=== PATIENT | female | born 2000 | race African-American/Black ===

== ENCOUNTER 2021-08-12 21:59 | Emergency (ER) | payer BC, OTHER ==
[~2021-08-12] VITALS: Ht 160 cm; Wt 103.4 kg
[2021-08-12] MEDS ORDERED: SODIUM CHLORIDE 0.9% 1000ML 1,000 ML IV STA (22:34)
[2021-08-12] MEDS ORDERED: KETOROLAC TROMETHAMINE 30 MG/ML VIAL IV STA (22:34)
[2021-08-12] MEDS ORDERED: ACETAMINOPHEN 325 MG TAB ONE (22:41)
[2021-08-12] MEDS ORDERED: KETOROLAC TROMETHAMINE 30 MG/ML VIAL ONE (22:43)
[2021-08-12] MEDS ORDERED: SODIUM CHLORIDE 0.9% 1000ML 1,000 ML ONE (22:44)
[2021-08-12] MEDS ORDERED: FENTANYL CITRATE/PF 100MCG/2 ML INJ IV PRN (22:45)
[2021-08-12 22:48] LABS: BASOPHILS # (AUTO) 0.1 (0.0-0.1); BASOPHILS % 0.7 % (0.0-1.0); EOSINOPHILS # (AUTO) 0.1 (0.0-0.4); EOSINOPHILS % 0.8 % (0.0-6.0); HEMATOCRIT 37.8 % (34.2-44.1); HEMOGLOBIN 11.7 g/dL (12.0-16.0); LYMPHOCYTES # (AUTO) 3.3 (1.0-3.2); LYMPHOCYTES % 33.7 % (18.0-39.1); MEAN CORPUSCULAR HEMOGLOBIN 26.4 pg (28-32); MEAN CORPUSCULAR VOLUME 85.1 fL (81-99); MONOCYTES # (AUTO) 0.8 (0.2-0.8); MONOCYTES % 8.1 % (4.4-11.3); NEUTROPHILS # (AUTO) 5.5 (2.1-6.9); NEUTROPHILS % 56.6 % (38.7-80.0); PLATELET COUNT 263 x10e3/uL (140-360); RED BLOOD COUNT 4.44 x10e6/uL (3.6-5.1); RED CELL DISTRIBUTION WIDTH 14.7 % (11.7-14.4)
[2021-08-12] MEDS ORDERED: ONDANSETRON HCL INJ 2MG/ML 2ML 2 MG/ML VIAL ONE (22:48)
[2021-08-12 22:50] LABS: CLARITY,URINE CLOUDY (CLEAR); COLOR,URINE YELLOW (YELLOW); KETONES,URINE NEGATIVE (NEGATIVE); LEUKOCYTE ESTERASE ,URINE NEGATIVE (NEGATIVE); NITRITE,URINE NEGATIVE (NEGATIVE); PROTEIN,URINE DIPSTICK NEGATIVE (NEGATIVE); URINE UROBILINOGEN 0.2 mg/dL (0.2 - 1)
[2021-08-12 22:56] LABS: BACTERIA,URINE MANY /HPF; EPITHELIAL CELLS,URINE MANY /LPF
[2021-08-12 22:57] LABS: AMORPHOUS SEDIMENT,URINE MANY (FEW)
[2021-08-12 23:05] LABS: ALBUMIN 3.6 g/dL (3.5-5.0); ANION GAP 14.6 mmol/L (8-16); CALCIUM 8.6 mg/dL (8.4-10.2); CREATININE, SERUM 0.77 mg/dL (0.57-1.11); POTASSIUM 3.6 mmol/L (3.5-5.1)
[2021-08-13] MEDS ORDERED: IOPAMIDOL 370 MG/ML 100 ML INFUS..BTL INJ ONE (00:06)
[2021-08-13] MEDS ORDERED: NAPROXEN250 MG PO (02:00)
[2021-08-13 02:29] VITALS: BP 115/68
== END 2021-08-13 02:25 | disposition home or self-care (01) ==
LOC: ER 22:15
DX: R10.31 Right lower quadrant pain (principal); N83.201 Unspecified ovarian cyst, right side; R50.9 Fever, unspecified; M54.9 Dorsalgia, unspecified; R11.0 Nausea; D64.9 Anemia, unspecified
CPT/HCPCS: 36415; 74177; 80053; 81001; 83690; 84702; 85025; 99284; J1885; J2405; J3010; J7030; Q9967

== ENCOUNTER 2024-10-17 22:48 | Emergency (ER) | payer BC, OTHER ==
[~2024-10-17] VITALS: Ht 160 cm; Wt 125.6 kg
[~2024-10-17 22:48] MED LIST: NAPROXEN250 MG PO
[2024-10-17 22:50] VITALS: PULSE 122; RESP 19; TEMP 97.6
[2024-10-17 23:20] LABS: BASOPHILS % 0.7 % (0.0-1.0); EOSINOPHILS % 1.1 % (0.0-6.0); LYMPHOCYTES % 51.1 % (18.0-39.1); MONOCYTES % 7.8 % (4.4-11.3); NEUTROPHILS % 39.0 % (38.7-80.0); RED CELL DISTRIBUTION WIDTH 15.4 % (11.7-14.4)
[2024-10-17 23:46] LABS: EST GLOMERULAR FILTRATION RATE 121.0 ML/MIN (>=60)
[2024-10-17] MEDS: FAMOTIDINE 20 MG/2 ML VIAL IV STA (23:58)
[2024-10-18] VITALS: BP 135/72; PULSE 105; RESP 20; O2SAT 100
== END 2024-10-18 00:09 | disposition home or self-care (01) ==
LOC: ER 22:55
DX: O26.891 Other specified pregnancy related conditions, first trimester (principal); R10.32 Left lower quadrant pain; E28.2 Polycystic ovarian syndrome; D64.9 Anemia, unspecified
CPT/HCPCS: 36415; 80053; 84702; 85025; 99284; J1308